=== PATIENT | male | born 1950 | race Caucasian/White ===

== ENCOUNTER 2018-04-05 12:10 | Emergency (ER) | payer OTHER, MEDICAID ==
--- NOTE | 2018-04-05 13:00 | EDPHY ---
H & P Stated Complaint: believes he could have pneumonia Time Seen by Provider: 04/05/18 12:58 HPI/ROS: CHIEF COMPLAINT: Fever, productive cough HISTORY OF PRESENT ILLNESS: The patient presents to the ED with a 10 day history of a worsening productive cough and associated fever. The patient has a history of hypertension, diabetes and COPD. The patient is not currently on oxygen. He had been on oxygen in the past. The patient denies any complaints of acute pain. He denies abdominal pain, vomiting or diarrhea. The patient feels as if he may have pneumonia. The patient feels globally weak as a result of this condition. REVIEW OF SYSTEMS: A comprehensive 10 point review of systems is otherwise negative aside from elements mentioned in the history of present illness. Source: Patient Exam Limitations: No limitations - Personal History Current Tetanus Diphtheria and Acellular Pertussis (TDAP): Unsure Tetanus Vaccine Date: unable to assess d/t intoxication - Medical/Surgical History Hx Asthma: Yes Hx Chronic Respiratory Disease: Yes Hx Diabetes: Yes Hx Cardiac Disease: No Hx Renal Disease: No Hx Cirrhosis: No Hx Alcoholism: Yes Hx HIV/AIDS: No Hx Splenectomy or Spleen Trauma: No Other PMH: IDDM, COPD, hypertension, hypothyroidism, CVA, PNA, Chronic [place] R[place]. home o2 prn - Social History Smoking Status: Former smoker - Physical Exam Exam: General Appearance: Alert, no distress Eyes: Pupils equal and round no pallor or injection ENT, Mouth: Mucous membranes moist Respiratory: There are no retractions, lungs are clear to auscultation Cardiovascular: Tachycardic Gastrointestinal: Abdomen is soft and nontender, no masses, bowel sounds normal Neurological: A&O, normal motor function, normal sensory exam, normal cranial nerves Skin: Warm and dry, no rashes Musculoskeletal: Neck is supple nontender Extremities: symmetrical, full range of motion Constitutional: Initial Vital Signs Temperature (C) 37.2 C 04/05/18 12:10 Heart Rate 107 H 04/05/18 12:10 Respiratory Rate 16 04/05/18 12:10 Blood Pressure 145/79 H 04/05/18 12:10 O2 Sat (%) 88 L 04/05/18 12:10 O2 Delivery Mode Room Air O2 (L/minute) 2 Allergies/Adverse Reactions: azithromycin Allergy (Intermediate, Verified 04/05/18 12:16) HALLUCINATIONS prednisone Allergy (Intermediate, Verified 04/05/18 12:16) HALLUCINATIONS memantine HCl [From Namenda] Allergy (Verified 04/05/18 12:16) naproxen [From Naprosyn] Allergy (Verified 04/05/18 12:16) Home Medications: Medication Instructions Recorded Carvedilol [Coreg (*)] 3.125 mg PO BIDMEAL 06/17/13 [place]-3 Fatty Acids [Fish Oil 1000 1,000 mg PO TID 06/17/13 mg (*)] Rosuvastatin Calcium [Crestor 40mg 40 mg PO DAILY 06/17/13 (*)] Tamsulosin HCl [Flomax 0.4 MG (*)] 0.4 mg PO HS 06/17/13 Tiotropium Inhaler [Spiriva 1 inh IH DAILY 06/17/13 Inhaler (RX)] Oxycodone HCl [Dazidox] 10 mg PO Q6 08/09/14 Insulin Glargine [Lantus 100 50 units SC HS 02/03/16 UNITS/ML (*)] Insulin Lispro [humALOG LISPRO 100 40 unit SC TID 02/03/16 units/ml (*)] Levothyroxine [Synthroid 125 mcg 112 mcg PO DAILY 02/03/16 (*)] Metformin HCl [Metformin 1000 mg] 1,000 mg PO BIDMEAL 02/03/16 Pantoprazole Sodium [Protonix 40mg 40 mg PO DAILY 02/03/16 (*)] traZODone [traZODone 150MG (*)] 150 mg PO HS 02/03/16 Aspirin [Aspirin 81mg (*)] 81 mg PO DAILY 03/25/16 Gabapentin [Neurontin] 800 mg PO TID 03/25/16 Niacin [Niacin 500 mg (*)] 500 mg PO TID 03/25/16 Promethazine HCl [Phenergan 25mg 25 mg PO Q6 PRN 03/25/16 (*)] Advair 250/50 (*) 09/24/16 B-12 09/24/16 Colon Herb Cleanser 09/24/16 Ginseng 09/24/16 Insulin Glargine 10 units SQ DAILY AT 6AM 09/24/16 Magnesium 09/24/16 Proventil 09/24/16 VITAMIN E 09/24/16 Vitamin C 09/24/16 Fluticasone/Salmeter 250/50Mcg 2 puffs IH DAILY #1 disk 04/05/18 [Advair 250/50 (*)] Medical Decision Making - Diagnostics Imaging Results: Imaging Impressions Chest X-Ray 04/05/18 12:17 Impression: Perihilar bronchitis/COPD, with no new focal infiltrate identified. If there is further clinical concern regarding the patient's symptoms, short- term repeat chest radiography or chest CT imaging is suggested. Note: On a previous CT scan of the chest dated 06/28/2016, a posterior segment subpleural right lower lobe nodular infiltrate was identified, and follow-up was suggested. This is not appreciated on the conventional radiograph. ED Course/Re-evaluation: Additional history is obtained from the patient. He is currently homeless and living his car. He has not seen his primary care provider in [place] in 2 years. He had previously been receiving care in [place]. The patient reports he has medications to manage his diabetes but is out of his inhalers. The patient's chest x-ray demonstrates no evidence of an obvious pneumonia. He has a room air oxygen saturation of 90%. Patient's laboratory studies are unremarkable for acute findings. Case management was able to arrange for the patient to be seen by his primary care provider on Tuesday to review his medications. The patient was also given the outpatient resources for the homeless correction. The patient is discharged home with a albuterol inhaler from the emergency department. He is given a prescription for his Advair. The patient will be given customary aftercare instructions and return precautions. Differential Diagnosis: Differential diagnosis considered includes asthma, bronchitis, pneumonia, diabetic ketoacidosis, dehydration, metabolic abnormality - Data Points Laboratory Results: Laboratory Results 04/05/18 13:06 04/05/18 13:06 04/05/18 04/05/18 13:06 13:06 WBC 12.64 10^3/uL H 10^3/uL (3.80-9.50) RBC 5.17 10^6/uL 10^6/uL (4.40-6.38) Hgb 14.0 g/dL g/dL (13.7-17.5) Hct 42.4 % % (40.0-51.0) MCV 82.0 fL fL (81.5-99.8) MCH 27.1 pg L pg (27.9-34.1) MCHC 33.0 g/dL g/dL (32.4-36.7) RDW 14.6 % % (11.5-15.2) Plt Count 212 10^3/uL 10^3/uL (150-400) MPV 9.4 fL fL (8.7-11.7) Neut % (Auto) 73.3 % % (39.3-74.2) Lymph % (Auto) 16.4 % % (15.0-45.0) [place] % (Auto) 7.5 % % (4.5-13.0) Eos % (Auto) 1.8 % % (0.6-7.6) Baso % (Auto) 0.4 % % (0.3-1.7) Nucleat RBC Rel Count 0.0 % % (0.0-0.2) Absolute Neuts (auto) 9.26 10^3/uL H 10^3/uL (1.70-6.50) Absolute Lymphs (auto) 2.07 10^3/uL 10^3/uL (1.00-3.00) Absolute Monos (auto) 0.95 10^3/uL H 10^3/uL (0.30-0.80) Absolute Eos (auto) 0.23 10^3/uL 10^3/uL (0.03-0.40) Absolute Basos (auto) 0.05 10^3/uL 10^3/uL (0.02-0.10) Absolute Nucleated RBC 0.00 10^3/uL 10^3/uL (0-0.01) Immature Gran % 0.6 % % (0.0-1.1) Immature Gran # 0.08 10^3/uL 10^3/uL (0.00-0.10) Sodium 135 mEq/L mEq/L (135-145) Potassium 3.8 mEq/L mEq/L (3.5-5.2) Chloride 96 mEq/L L mEq/L (97-110) Carbon Dioxide 26 mEq/l mEq/l (22-31) Anion Gap 13 mEq/L mEq/L (8-16) BUN 11 mg/dL mg/dL (7-23) Creatinine 1.1 mg/dL mg/dL (0.7-1.3) Estimated GFR > 60 Glucose 191 mg/dL H mg/dL (70-100) Calcium 8.9 mg/dL mg/dL (8.5-10.4) Departure - Departure Disposition: Home, Routine, Self-Care Clinical Impression: Bronchitis Condition: Good Instructions: Acute Bronchitis (ED) Additional Instructions: 1. You have an appointment with Dr. Bryant Tena on Tuesday04/07/18 at 2: 30pm. Please arrive by 2:15pm 2. Albuterol inhaler up to every 2 hr as needed for cough and shortness of breath. 3. Please return to the ED for markedly worsening symptoms or other concerns. Referrals: Bryant Tena MD [Medical Doctor] - As per Instructions Prescriptions: Fluticasone/Salmeter 250/50Mcg [Advair 250/50 (*)] 2 puffs IH DAILY #1 disk
[2018-04-05 13:22] LABS: PLATELET COUNT 212 10^3/uL (150-400)
[2018-04-05] MEDS ORDERED: ALBUTEROL INH PREPACK MDI TAKEHOME ONE (16:21)
[2018-04-05 16:40] VITALS: BP 132/80
--- NOTE | 2018-04-05 18:06 | ASMTCMCOM ---
CM Note CM Note Notes: Requested to assist pt w/getting a follow-up appt w/his PCP, Dr Tena ([phone]). Pt's last visit w/Dr Tena was in October 2016. Pt has been living in [place] but has moved back to [place] and would like to see Dr Tena again. This CM scheduled an appt for pt on 04/07/18 at 2:30pm. Pt knows to arrive by 2:15pm and was provided contact info, address, and map. This CM also spoke with Dr Tena's Restorative Coordinator, Yvonne Melvin ([phone]); she is aware pt is back in [place] and has upcoming appt. Pt has been sleeping in his car but states he has already gone to the [employer] "and filled out paperwork to get housing." This CM also provided pt info on [facility]'s Coordinate Entry and encouraged him to go there tomorrow. Pt also provided various other homeless resources information such as community table meals, etc. Pt states he has a couple of friends he can call and see if they can help him out in the meantime. Pt's cell # [phone]. This CM also e-mailed Kyra Lambert with [facility] requesting her to reach out patient and see if he can further benefit from their services/resources. CM available for further assistance if needed. Date Signed: 04/05/2018 06:06 PM Electronically Signed By:Sera Candelaria RN
--- NOTE | 2018-04-05 18:07 | ASDISCHSUM ---
Discharge Information Plan Status:Homeless/Usp Medically Cleared to Leave: Discharge Date:04/05/2018 04:40 PM CM D/C Disposition:Streets (Homeless) ADT D/C Disposition:Home, Routine, Self-Care Projected Discharge Date:04/05/2018 04:40 PM Transportation at D/C:Self Discharge Delay Reason: Follow-Up Date:04/05/2018 04:40 PM Discharge Slot: Final Diagnosis: Placement Information Patient Contact Information Contact Name:ANUJ Relationship:Daughter Address: City:[facility] Phone: State/Zip Code:[place] Email: Financial Information Financial Class:Medicare Primary Plan Desc:MEDICARE OUTPATIENT Primary Plan Number:[id number] Secondary Plan Desc:MEDICAID HEALTH FIRST CO OP Secondary Plan Number:[id number] Assessment Information [facility] Progress Note CM Note CM Note Notes: Requested to assist pt w/getting a follow-up appt w/his PCP, Dr Tena ([phone]). Pt's last visit w/Dr Tena was in October 2016. Pt has been living in [place] but has moved back to [place] and would like to see Dr Tena again. This CM scheduled an appt for pt on 04/07/18 at 2:30pm. Pt knows to arrive by 2:15pm and was provided contact info, address, and map. This CM also spoke with Dr Tena's Java Jsf Developer, Yvonne Melvin ([phone]); she is aware pt is back in [place] and has upcoming appt. Pt has been sleeping in his car but states he has already gone to the [employer] "and filled out paperwork to get housing." This CM also provided pt info on [facility]'s Coordinate Entry and encouraged him to go there tomorrow. Pt also provided various other homeless resources information such as community table meals, etc. Pt states he has a couple of friends he can call and see if they can help him out in the meantime. Pt's cell # [phone]. This CM also e-mailed Kyra Petra with [facility] requesting her to reach out patient and see if he can further benefit from their services/resources. CM available for further assistance if needed. Date Signed: 04/05/2018 06:06 PM Electronically Signed By:Sera Candelaria RN Intervention Information
== END 2018-04-05 16:40 | disposition home or self-care (01) ==
DX: J40 Bronchitis, not specified as acute or chronic (principal); J44.9 Chronic obstructive pulmonary disease, unspecified; E11.9 Type 2 diabetes mellitus without complications; I10 Essential (primary) hypertension; Z79.4 Long term (current) use of insulin; Z79.82 Long term (current) use of aspirin; Z86.73 Personal history of transient ischemic attack (TIA), and cerebral infarction without residual deficits; Z87.891 Personal history of nicotine dependence

== ENCOUNTER 2018-08-06 08:57 | Emergency (ER) | payer MEDICAID, OTHER ==
[2018-08-06] MEDS ORDERED: ONDANSETRON 4 MG/2 ML VIAL IVP ONE (09:47)
[2018-08-06 09:56] LABS: PLATELET COUNT 244 10^3/uL (150-400)
--- NOTE | 2018-08-06 10:19 | EDPHY ---
H & P Time Seen by Provider: 08/06/18 10:16 HPI/ROS: Chief complaint. Nausea, headache, weakness HPI. 67-year-old female with history of COPD, hypertension, diabetes presents with 3 day history of nausea. He also has a headache but tells me he has chronic headaches for many years and this is the same. No vomiting or diarrhea. Some upper abdominal discomfort. No chest discomfort. Chronic shortness of breath secondary to COPD. No fever or cough. And patient tells me maybe some left-sided chest tightness ROS Constitutional. no fever/chills, no weakness Eyes. no problems with vision ENT. no sore throat, no nasal drainage Cardiovascular. Chest tightness Respiratory. Chronic shortness of breath Abdominal. Upper abdominal pain with nausea . no problems urinating [place]. no calf pain/swelling, no neck/back pain, no joint pain Skin. no rash Lymph. no swollen glands Neuro. Chronic headache Past Medical/Surgical History: Hypertension, diabetes, COPD, hypothyroid, CVA Social History: Single, nonsmoker, no alcohol Smoking Status: Former smoker Physical Exam: General Appearance: Alert pleasant well-developed male mild distress vital signs are stable Eyes: Pupils equal and round no pallor or injection. ENT, Mouth: Mucous membranes are moist. Respiratory: There are no retractions, lungs are clear to auscultation. Cardiovascular: Regular rate and rhythm. Gastrointestinal: Abdomen is soft and nontender, no masses, bowel sounds normal. Neurological: Awake and alert, sensory and motor exams grossly normal. Skin: Warm and dry, no rashes. Musculoskeletal: Neck is supple nontender. Extremities symmetrical, full range of motion. Psychiatric: Patient is oriented X 3, there is no agitation. Constitutional: Initial Vital Signs Temperature (C) 36.7 C 08/06/18 08:59 Heart Rate 96 08/06/18 08:59 Respiratory Rate 18 08/06/18 08:59 Blood Pressure 165/97 H 08/06/18 08:59 O2 Sat (%) 96 08/06/18 08:59 O2 Delivery Mode Room Air Allergies/Adverse Reactions: azithromycin Allergy (Unknown, Verified 08/06/18 09:05) memantine HCl [From Namenda] Allergy (Unknown, Verified 08/06/18 09:05) prednisone Allergy (Unknown, Verified 08/06/18 09:05) Home Medications: Medication Instructions Recorded Carvedilol [Coreg (*)] 3.125 mg PO BIDMEAL 06/17/13 Rosuvastatin Calcium [Crestor 40mg 40 mg PO DAILY 06/17/13 (*)] Tamsulosin HCl [Flomax 0.4 MG (*)] 0.4 mg PO HS 06/17/13 Tiotropium Inhaler [Spiriva 1 inh IH DAILY 06/17/13 Inhaler (RX)] Insulin Glargine [Lantus 100 50 units SC HS 02/03/16 UNITS/ML (*)] Insulin Lispro [humALOG LISPRO 100 40 unit SC TID 02/03/16 units/ml (*)] Levothyroxine [Synthroid 125 mcg 112 mcg PO DAILY 02/03/16 (*)] Metformin HCl [Metformin 1000 mg] 1,000 mg PO BIDMEAL 02/03/16 Pantoprazole Sodium [Protonix 40mg 40 mg PO DAILY 02/03/16 (*)] traZODone [traZODone 150MG (*)] 150 mg PO HS 02/03/16 Aspirin [Aspirin 81mg (*)] 81 mg PO DAILY 03/25/16 Gabapentin [Neurontin] 800 mg PO TID 03/25/16 Proventil 09/24/16 Ondansetron Odt [Zofran Odt] 4 mg PO Q4PRN PRN #4 tab 08/06/18 Medical Decision Making Procedures: IV normal saline. Zofran for nausea ED Course/Re-evaluation: Re-evaluation 12:30 p.m.. Patient is without symptoms. He has been ambulatory. Drinking fluids without nausea vomiting. Patient and I discussed laboratory evaluation. We discussed treatment plan including criteria for return importance of follow-up and further evaluation. He expresses understanding and agreement Differential Diagnosis: I considered pancreatitis, acute coronary syndrome, electrolyte abnormalities - Data Points Laboratory Results: Laboratory Results 08/06/18 09:40 08/06/18 09:40 08/06/18 08/06/18 08/06/18 10:53 09:40 09:40 WBC RBC Hgb Hct MCV MCH MCHC RDW Plt Count MPV Neut % (Auto) Lymph % (Auto) [place] % (Auto) Eos % (Auto) Baso % (Auto) Nucleat RBC Rel Count Absolute Neuts (auto) Absolute Lymphs (auto) Absolute Monos (auto) Absolute Eos (auto) Absolute Basos (auto) Absolute Nucleated RBC Immature Gran % Immature Gran # Sodium 140 mEq/L mEq/L (135-145) Potassium 4.5 mEq/L mEq/L (3.3-5.0) Chloride 101 mEq/L mEq/L (97-110) Carbon Dioxide 28 mEq/l mEq/l (22-31) Anion Gap 11 mEq/L mEq/L (8-16) BUN 15 mg/dL mg/dL (7-23) Creatinine 0.9 mg/dL mg/dL (0.7-1.3) Estimated GFR > 60 Glucose 175 mg/dL H mg/dL (70-100) Calcium 9.6 mg/dL mg/dL (8.5-10.4) Total Bilirubin 0.5 mg/dL mg/dL (0.1-1.4) AST 26 IU/L IU/L (17-59) ALT 29 IU/L IU/L (21-72) Alkaline Phosphatase 63 IU/L IU/L (38-126) POC Troponin I 0.00 ng/mL ng/mL (0.00-0.08) Total Protein 7.8 g/dL g/dL (6.3-8.2) Albumin 4.5 g/dL g/dL (3.5-5.0) Lipase 137 IU/L IU/L (23-300) 08/06/18 09:40 WBC 7.90 10^3/uL 10^3/uL (3.80-9.50) RBC 6.14 10^6/uL 10^6/uL (4.40-6.38) Hgb 14.4 g/dL g/dL (13.7-17.5) Hct 46.9 % % (40.0-51.0) MCV 76.4 fL L fL (81.5-99.8) MCH 23.5 pg L pg (27.9-34.1) MCHC 30.7 g/dL L g/dL (32.4-36.7) RDW 15.2 % % (11.5-15.2) Plt Count 244 10^3/uL 10^3/uL (150-400) MPV 9.5 fL fL (8.7-11.7) Neut % (Auto) 67.8 % % (39.3-74.2) Lymph % (Auto) 20.0 % % (15.0-45.0) [place] % (Auto) 7.7 % % (4.5-13.0) Eos % (Auto) 3.3 % % (0.6-7.6) Baso % (Auto) 0.8 % % (0.3-1.7) Nucleat RBC Rel Count 0.0 % % (0.0-0.2) Absolute Neuts (auto) 5.36 10^3/uL 10^3/uL (1.70-6.50) Absolute Lymphs (auto) 1.58 10^3/uL 10^3/uL (1.00-3.00) Absolute Monos (auto) 0.61 10^3/uL 10^3/uL (0.30-0.80) Absolute Eos (auto) 0.26 10^3/uL 10^3/uL (0.03-0.40) Absolute Basos (auto) 0.06 10^3/uL 10^3/uL (0.02-0.10) Absolute Nucleated RBC 0.00 10^3/uL 10^3/uL (0-0.01) Immature Gran % 0.4 % % (0.0-1.1) Immature Gran # 0.03 10^3/uL 10^3/uL (0.00-0.10) Sodium Potassium Chloride Carbon Dioxide Anion Gap BUN Creatinine Estimated GFR Glucose Calcium Total Bilirubin AST ALT Alkaline Phosphatase POC Troponin I Total Protein Albumin Lipase Medications Given: Discontinued Medications Sodium Chloride (Ns) 1,000 mls @ 0 mls/hr IV EDNOW ONE; Wide Open PRN Reason: Protocol Stop: 08/06/18 10:31 Last Admin: 08/06/18 10:46 Dose: 1,000 mls Ondansetron HCl (Zofran) 4 mg IVP EDNOW ONE Stop: 08/06/18 09:48 Last Admin: 08/06/18 09:50 Dose: 4 mg Point of Care Test Results: Chemistry 08/06/18 10:53 POC Troponin I 0.00 ng/mL ng/mL (0.00-0.08) Departure - Departure Disposition: Home, Routine, Self-Care Clinical Impression: Abdominal pain Qualifiers: Abdominal location: epigastric Qualified Code(s): R10.13 - Epigastric pain Condition: Good Instructions: Abdominal Pain (ED) Additional Instructions: Easy, bland diet today. Frequent, small sips fluids. Zofran as needed for nausea Return for worsening symptoms. Recheck in 2 days for continuing symptoms Referrals: Bryant Tena MD [Primary Care Provider] - 2-3 days, if not improved Prescriptions: Ondansetron Odt [Zofran Odt] 4 mg PO Q4PRN PRN #4 tab PRN Reason: Nausea/Vomiting, Use 1st
[2018-08-06] MEDS ORDERED: NS 1,000 ML IV ONE (10:30)
[2018-08-06 12:58] VITALS: BP 135/80
--- NOTE | 2018-08-06 15:14 | CPEKG ---
Test Reason : OPEN Blood Pressure : / mmHG Vent. Rate : 092 BPM Atrial Rate : 092 BPM P-R Int : 133 ms QRS Dur : 073 ms QT Int : 412 ms P-R-T Axes : 075 031 070 degrees QTc Int : 510 ms Sinus rhythm Prolonged QT interval Confirmed by Tommy Ordoñez ([id number]) on 08/06/2018 3:13:59 PM Referred By: Confirmed By:Tommy Ordoñez
== END 2018-08-06 12:58 | disposition home or self-care (01) ==
DX: R11.0 Nausea (principal); R10.13 Epigastric pain; J44.9 Chronic obstructive pulmonary disease, unspecified; I10 Essential (primary) hypertension; E11.9 Type 2 diabetes mellitus without complications; E86.9 Volume depletion, unspecified; Z87.891 Personal history of nicotine dependence
CPT/HCPCS: 93005; 96361; 96374; 99284; J2405; 84484-PO

== ENCOUNTER 2018-08-30 17:44 | Inpatient (IN) | payer OTHER, MEDICAID ==
--- NOTE | 2018-08-30 17:52 | EDPHY ---
H & P Time Seen by Provider: 08/30/18 17:51 HPI/ROS: CHIEF COMPLAINT: Fever, cough, weakness HISTORY OF PRESENT ILLNESS: Patient is a homeless male who is brought into the emergency department by paramedics with fever, cough and weakness. The patient reportedly was lying on a sidewalk and unable to get up. He reports he was fatigue from working in the sun all day. The patient denies any vomiting or diarrhea. He does have a history of diabetes and takes oral medications for this condition. The patient has had a cough for the past several days. He denies any abdominal pain, vomiting or diarrhea. The patient denies any history of coronary artery disease. He does have a history of COPD. REVIEW OF SYSTEMS: A comprehensive 10 point review of systems is otherwise negative aside from elements mentioned in the history of present illness. Source: Patient - Personal History Tetanus Vaccine Date: unable to assess d/t intoxication - Medical/Surgical History Hx Asthma: Yes Hx Chronic Respiratory Disease: Yes Hx Diabetes: Yes Hx Cardiac Disease: No Hx Renal Disease: No Hx Cirrhosis: No Hx Alcoholism: Yes Hx HIV/AIDS: No Hx Splenectomy or Spleen Trauma: No Other PMH: IDDM, COPD, hypertension, hypothyroidism, CVA, PNA, Chronic DEL RIO. home o2 prn - Social History Smoking Status: Former smoker - Physical Exam Exam: General Appearance: Disheveled male, no acute distress Eyes: Pupils equal and round no pallor or injection ENT, Mouth: Dry mouth, poor dentition Respiratory: Rales noted at the right lung base Cardiovascular: Regular rate and rhythm Gastrointestinal: Abdomen is soft and nontender, no masses, bowel sounds normal Neurological: A&O, normal motor function, normal sensory exam, normal cranial nerves Skin: Warm and dry, no rashes Musculoskeletal: Neck is supple nontender Extremities: symmetrical, full range of motion Constitutional: Initial Vital Signs Temperature (C) 37.1 C 08/30/18 17:56 Heart Rate 103 H 08/30/18 17:56 Respiratory Rate 22 H 08/30/18 17:56 Blood Pressure 141/86 H 08/30/18 17:56 O2 Sat (%) 96 08/30/18 17:56 O2 Delivery Mode Room Air Allergies/Adverse Reactions: azithromycin Allergy (Unknown, Verified 08/30/18 18:00) memantine HCl [From Namenda] Allergy (Unknown, Verified 08/30/18 18:00) prednisone Allergy (Unknown, Verified 08/30/18 18:00) Home Medications: Medication Instructions Recorded Carvedilol [Coreg (*)] 3.125 mg PO BIDMEAL 06/17/13 Rosuvastatin Calcium [Crestor 40mg 40 mg PO DAILY 06/17/13 (*)] Tamsulosin HCl [Flomax 0.4 MG (*)] 0.4 mg PO HS 06/17/13 Tiotropium Inhaler [Spiriva 1 inh IH DAILY 06/17/13 Inhaler (RX)] Insulin Glargine [Lantus 100 50 units SC HS 02/03/16 UNITS/ML (*)] Insulin Lispro [humALOG LISPRO 100 40 unit SC TID 02/03/16 units/ml (*)] Levothyroxine [Synthroid 125 mcg 112 mcg PO DAILY 02/03/16 (*)] Metformin HCl [Metformin 1000 mg] 1,000 mg PO BIDMEAL 02/03/16 Pantoprazole Sodium [Protonix 40mg 40 mg PO DAILY 02/03/16 (*)] traZODone [traZODone 150MG (*)] 150 mg PO HS 02/03/16 Aspirin [Aspirin 81mg (*)] 81 mg PO DAILY 03/25/16 Gabapentin [Neurontin] 800 mg PO TID 03/25/16 Proventil 09/24/16 Ondansetron Odt [Zofran Odt] 4 mg PO Q4PRN PRN #4 tab 08/06/18 Medical Decision Making - Diagnostics Imaging Results: Imaging Impressions Chest X-Ray 08/30/18 17:50 Impression: Moderate underlying bronchitis, similar in appearance. No definite new acute cardiopulmonary abnormality. ED Course/Re-evaluation: The patient presents to the ED with weakness from sun exposure today and likely dehydration. The patient does have a history of COPD. He has had a several day history of a mild cough. The patient's chest x-ray demonstrates no evidence of an obvious pneumonia. Patient had an IV established. He received 2 L of normal saline. The patient CPKs within normal limits. He has no evidence of renal failure or a significant metabolic derangement. The patient underwent serial examinations in the ED. I re-evaluated the patient at 815pm.. He is feeling much better. He is eating and drinking. The patient is ambulatory. He has a nonfocal neurologic examination. The patient would like to be discharged home. The patient does have a history of chronic hypoxemia from his COPD and uses oxygen as needed at night. Differential Diagnosis: Differential diagnosis considered includes asthma, bronchitis, pneumonia, bacteremia, sepsis - Data Points Laboratory Results: Laboratory Results 08/30/18 18:20 08/30/18 18:20 08/30/18 08/30/18 08/30/18 18:20 18:20 18:20 WBC 13.75 10^3/uL H 10^3/uL (3.80-9.50) RBC 5.08 10^6/uL 10^6/uL (4.40-6.38) Hgb 11.8 g/dL L g/dL (13.7-17.5) Hct 39.5 % L % (40.0-51.0) MCV 77.8 fL L fL (81.5-99.8) MCH 23.2 pg L pg (27.9-34.1) MCHC 29.9 g/dL L g/dL (32.4-36.7) RDW 16.3 % H % (11.5-15.2) Plt Count 264 10^3/uL 10^3/uL (150-400) MPV 9.8 fL fL (8.7-11.7) Neut % (Auto) Not Reported Lymph % (Auto) Not Reported [place] % (Auto) Not Reported Eos % (Auto) Not Reported Baso % (Auto) Not Reported Nucleat RBC Rel Count Not Reported Absolute Neuts (auto) Not Reported Absolute Lymphs (auto) Not Reported Absolute Monos (auto) Not Reported Absolute Eos (auto) Not Reported Absolute Basos (auto) Not Reported Absolute Nucleated RBC Not Reported Immature Gran % Not Reported Seg Neutrophils % 79.0 % % Band Neutrophils % 0.0 % % Lymphocytes % 13.0 % % Monocytes % 4.0 % % Eosinophils % 2.0 % % Basophils % 0.0 % % Metamyelocytes % 2.0 % % Myelocytes % 0.0 % % Promyelocytes % 0.0 % % Blast Cells % 0.0 % % Immature Gran # Not Reported Absolute Seg Neuts 10.86 10^/uL H 10^/uL (1.70-6.50) Absolute Band Neuts 0.00 10^3/uL 10^3/uL (0.00-0.70) Absolute Lymphocytes 1.79 10^3/uL 10^3/uL (1.00-3.00) Absolute Monocytes 0.55 10^3/uL 10^3/uL (0.30-0.80) Absolute Eosinophils 0.28 10^3/uL 10^3/uL (0.03-0.40) Absolute Basophils 0.00 10^3/uL L 10^3/uL (0.02-0.10) Absolute Metamyelocyte 0.28 10^3/mL H 10^3/mL (0.00-0.00) Absolute Myelocytes 0.00 10^3/mL 10^3/mL (0.00-0.00) Absolute Promyelocytes 0.00 10^3/uL 10^3/uL (0.00-0.00) Absolute Plasma Cells 0.00 10^3/uL 10^3/uL (0.00-0.00) Nucleated RBCs 1.0 /100 WBC H /100 WBC (0-0) Absolute Blast Cells 0.00 10^3/uL 10^3/uL (0.00-0.00) Plasma Cells % 0.0 % % Platelet Estimate ADEQUATE (ADEQ) VBG Lactic Acid 1.1 mmol/L mmol/L (0.7-2.1) Sodium 136 mEq/L mEq/L (135-145) Potassium 5.2 mEq/L H mEq/L (3.3-5.0) Chloride 97 mEq/L mEq/L (97-110) Carbon Dioxide 30 mEq/l mEq/l (22-31) Anion Gap 9 mEq/L mEq/L (8-16) BUN 18 mg/dL mg/dL (7-23) Creatinine 1.1 mg/dL mg/dL (0.7-1.3) Estimated GFR > 60 Glucose 155 mg/dL H mg/dL (70-100) Calcium 9.5 mg/dL mg/dL (8.5-10.4) Creatine Kinase 198 IU/L IU/L (0-224) Medications Given: Discontinued Medications Sodium Chloride (Ns) 1,000 mls @ 0 mls/hr IV EDNOW ONE; Wide Open PRN Reason: Protocol Stop: 08/30/18 19:39 Last Admin: 08/30/18 19:41 Dose: 1,000 mls Departure - Departure Disposition: Home, Routine, Self-Care Clinical Impression: Dehydration, COPD (chronic obstructive pulmonary disease) Condition: Good Instructions: Dehydration (ED) Additional Instructions: 1. Please try and increase your fluid intake as mild dehydration likely contributed to your symptoms today. 2. Please return to the ED for any markedly worsening symptoms, difficulty breathing, cough, fever or vomiting 3. Please schedule a follow-up appointment with [facility] for a recheck. Referrals: [facility],. [Clinic] - As per Instructions
[2018-08-30 18:40] LABS: PLATELET COUNT 264 10^3/uL (150-400)
[2018-08-30 18:57] LABS: CREATINE KINASE 198 IU/L (0-224)
[2018-08-30] MEDS ORDERED: NS 1,000 ML IV ONE (19:38)
[2018-08-30] MEDS ORDERED: IPRATROPIUM/ALBUTEROL 3 ML DEYVIAL IH ONE (20:37)
[2018-08-30] MEDS ORDERED: ALBUTEROL 3 ML DEYVIAL IH ONE (20:38)
[2018-08-30] MEDS ORDERED: methylPREDNISolone SOD SUCC 125 MG/2 ML VIAL IVP ONE (20:38)
[2018-08-30] MEDS ORDERED: TEMAZEPAM 15 MG CAP PO PRN (21:38)
[2018-08-30] MEDS ORDERED: ACETAMINOPHEN 325 MG TAB PO PRN (21:38)
[2018-08-30] MEDS ORDERED: ALBUTEROL 3 ML DEYVIAL IH PRN (21:38)
[2018-08-30] MEDS ORDERED: ONDANSETRON DISINTEGRATING 4 MG TAB PO PRN (21:38)
[2018-08-30] MEDS ORDERED: HYDROCODONE/APAP 5/325 TAB PO PRN (21:38)
[2018-08-30] MEDS ORDERED: ONDANSETRON 4 MG/2 ML VIAL IVP PRN (21:38)
[2018-08-30] MEDS ORDERED: hydrALAZINE 20 MG/ML VIAL IVP PRN (21:39)
[2018-08-31] MEDS ORDERED: D50W 25 GM/50 ML SYR IVP PRN (00:55)
[2018-08-31] MEDS ORDERED: NS 1,000 ML IV SCH (01:00)
--- NOTE | 2018-08-31 03:39 | GHP ---
DATE OF ADMISSION: 08/30/2018 CHIEF COMPLAINT: Shortness of breath. HISTORY: This is a 67-year-old homeless man, with a past medical history of chronic obstructive pulm onary disease and chronic hypoxic respiratory failure, who presents with worsening shortness of breat h. The patient notes that he was seen recently at another hospital, at which time he was told he nee ds home oxygen. He has attempted to get this set up over the last couple of months, and has been unique ble to due to his homelessness. He was noted to be 82% on room air in the hospital today. He notes he has a chronic cough that is unchanged. He otherwise denies fevers or chills. He has had no tovar e in his chronic sputum production. PAST MEDICAL HISTORY: Includes: 1. COPD. 2. Diabetes. 3. Chronic hypoxia without access to home oxygen. 4. Hypothyroidism. 5. CVA in 2008. 6. Peripheral neuropathy. FAMILY HISTORY: This was reviewed and unremarkable. SOCIAL HISTORY: The patient has a 30+ pack-year smoking history, but states he quit about 10 years a go. He denies alcohol use. He is homeless. REVIEW OF SYSTEMS: A 10-point review of systems obtained, negative except as per HPI. HOME MEDICATIONS: 1. Trazodone. 2. Tiotropium. 3. Tamsulosin. 4. Rosuvastatin. 5. Proventil. 6. Pantoprazole. 7. Zofran. 8. Metformin. 9. Levothyroxine. 10. Insulin lispro. 11. Insulin glargine. 12. Gabapentin. 13. Carvedilol. 14. Aspirin. ALLERGIES: Include azithromycin, memantine, and prednisone. PHYSICAL EXAMINATION: VITAL SIGNS: BP 164/84, heart rate 108, respiratory rate 24, O2 sats 91% on 4 L; he was as low as 82% on room air. Temperature is 36.6. GENERAL APPEARANCE: This is a chronical ly ill-appearing male. He is awake and alert. He is in no acute distress. EYES: Anicteric. HENT: Oropharynx clear. CARDIOVASCULAR: Regular rate and rhythm, no MRG. PULMONARY: Decreased breath sounds throughout. Occasional wheeze. ABDOMEN: Soft, nontender, nondistended. EXTREMITIES: No cl ubbing, cyanosis, or edema. SKIN: Warm, dry, well perfused. NEURO/PSYCH: Oriented, appropriate, p leasant. CLINICAL DATA: Labs reviewed, notable for white blood cell count of 13.75, hematocrit of 11.8 and la ctic acid 1.1. Chemistry is notable for a potassium of 5.2, glucose of 155. Chest x-ray, personally reviewed and interpreted, shows underlying bronchitis without any acute abnor mality. ASSESSMENT AND PLAN: This is a 67-year-old man with past medical history of chronic obstructive pulm onary disease and chronic hypoxic respiratory failure, unable to obtain home oxygen due to homelessne ss, presenting with shortness of breath and acute hypoxic respiratory failure. 1. Acute on chronic hypoxic respiratory failure. Patient with O2 sats of 82% on room air, this in t he setting of being unable to obtain his home oxygen that he was previously recommended. He is sympt omatic. X-ray is not concerning for acute abnormality, and suspect this is just due to noncompliance with oxygen, rather than something like pneumonia or pulmonary embolism. Will attempt to have case management help to see if home oxygen can be arranged in the morning. 2. Chronic obstructive pulmonary disease, without evidence of acute exacerbation. Will start albute rol and DuoNeb overnight, and resume his home medications once those have been confirmed in the [facility] ng. He was given a dose of methylprednisone, but do not suspect he requires that ongoing at this poi nt. 3. Insulin-dependent diabetes. His home regimen needs to be confirmed, but for now will start on sl iding scale. His most recent glucose was within normal range. 4. Leukocytosis without clear evidence of acute infectious process at this point. We will repeat in the morning. 5. Hyperkalemia. Mildly elevated potassium, will recheck in the morning. Patient may be slightly d ry, with a creatinine of 1.1 and usual baseline of closer to 0.9. We will provide gentle fluids over night. 6. Observation status. Suspect the patient will require less than 48-hour stay for evaluation and m anagement of above. 7. Patient is new to my care. Old records reviewed, summarized as per HPI and past medical history. Care plan reviewed with ER physician, including plans to attempt to obtain oxygen for the patient. /[id number]/MODL
[2018-08-31 05:00] LABS: PLATELET COUNT 222 10^3/uL (150-400)
[2018-08-31] MEDS: IPRATROPIUM/ALBUTEROL 3 ML DEYVIAL IH SCH ×4 (05:45→21:05)
--- NOTE | 2018-08-31 08:14 | HOSPPROG ---
Hospitalist Progress Note Assessment/Plan: Patient is a 67 y/o man w hx of COPD and chronic hypoxic respiratory failure. Unable to obtain O2 due to being homeless. He presented to the ER with SOB and acute hypoxemic respiratory failure. *acute on chronic hypoxic respiratory failure -O2 sats on room air are 82% -chest x ray shows nothing acute *COPD -prn nebs *IDDM -resumed home meds *Leukocytosis -received a dose of IV steroids *Hyperkalemia -recheck now -hold Cozaar *headache -Excedrin started *plan: he needs Oxygen and being homeless makes this difficult; reviewed this w CM and they are looking into options. He has Medicare. He will require another midnight stay due to his hypoxia secondary from his COPD. Subjective: yAo said he is short of breath but this is chronic. Objective: Vital Signs Temp Pulse Resp BP Pulse Ox 36.6 C 97 16 138/83 H 91 L 08/31/18 07:41 08/31/18 07:41 08/31/18 07:41 08/31/18 07:41 08/31/18 07:41 Laboratory Results 08/31/18 04:25 08/31/18 04:25 08/30/18 08/31/18 09/01/18 05:59 05:59 05:59 Intake Total 1550 Balance 1550 - Physical Exam Constitutional: no apparent distress, chronically ill appearing Eyes: PERRL Ears, Nose, Mouth, Throat: hearing normal Cardiovascular: regular rate and rhythym Respiratory: no respiratory distress (poor air exchange throughout both lungs, very decreased at the bases), reduced air movement Gastrointestinal: normoactive bowel sounds Skin: warm Musculoskeletal: full muscle strength Neurologic: AAOx3 Psychiatric: interacting appropriately ICD10 Worksheet Patient Problems: Problems Problem Status Onset Failure to thrive in adult Acute Hypoglycemia due to insulin Acute Hypoxemia Acute Diabetes mellitus Acute Pulmonary mass Acute Dehydration Acute COPD (chronic obstructive pulmonary disease) Acute
[2018-08-31] MEDS: INSULIN LISPRO 100 UNIT/ML SC SCH ×3 (08:34→17:32)
[2018-08-31] MEDS ORDERED: ACETAMINOPHEN/ASA/CAFFEINE 1 EACH TAB PO PRN (08:47)
--- NOTE | 2018-08-31 09:44 | ASMTLACE ---
NIALL Comorbidities - select Answers: Cerebrovascular disease all that apply (CVA, TIA, aneurysms, vasc ular dementia) Chronic pulmonary disease Diabetes (uncontrolled or controlled) Opioid dependence / Chronic pain Other Notes: HTN # of Emergency department Answers: 3-4 visits in the last 6 months Social determinants Answers: History of substance abuse (ETOH, street drugs, prescription drugs, etc.) Homelessness (street, [facility]p) Score: 18 Date Signed: 08/31/2018 09:43 AM Electronically Signed By:Aure Fang
[2018-08-31] MEDS ORDERED: ALBUTEROL 60 PUFFS/8 GM MDI IH PRN (10:33)
[2018-08-31] MEDS: TIOTROPIUM INHALER 18 MCG/DOSE 5 DOSE/MDI IH SCH (11:39)
[2018-08-31] MEDS: FLUTICASONE/SALMETER 250/50MCG DISKUS IH SCH ×2 (11:40→21:05)
[2018-08-31] MEDS: ASPIRIN 81 MG CHEWABLE TAB PO SCH (12:10)
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
[2018-08-31] MEDS: GABAPENTIN 300 MG CAP PO SCH ×2 (17:31→21:28)
[2018-08-31] MEDS: CARVEDILOL 3.125 MG TAB PO SCH (17:32)
[2018-08-31] MEDS: metFORMIN HCL 500 MG TAB PO SCH (17:32)
[2018-08-31] MEDS ORDERED: CARVEDILOL 3.125 MG TAB PO SCH (18:00)
[2018-08-31] MEDS: TAMSULOSIN HCL 0.4 MG CAP PO SCH (21:28)
[2018-08-31] MEDS: INSULIN GLARGINE 100 UNITS/ML UNIT SC SCH (21:28)
[2018-08-31] MEDS: FLUTICASONE NASAL 120 SPRAYS/16 GM MDI EACHNARE SCH (21:32)
[2018-09-01] MEDS: IPRATROPIUM/ALBUTEROL 3 ML DEYVIAL IH SCH ×4 (05:47→22:29)
[2018-09-01] MEDS: LEVOTHYROXINE 50 MCG TAB PO SCH (06:17)
[2018-09-01] MEDS: GABAPENTIN 300 MG CAP PO SCH ×3 (08:21→21:55)
[2018-09-01] MEDS: metFORMIN HCL 500 MG TAB PO SCH ×2 (08:21→17:23)
[2018-09-01] MEDS: ROSUVASTATIN CALCIUM 40 MG TAB PO SCH (08:21)
[2018-09-01] MEDS: INSULIN GLARGINE 100 UNITS/ML UNIT SC SCH ×2 (08:21→22:01)
[2018-09-01] MEDS: OMEGA-3 FATTY ACIDS 1,000 MG CAP PO SCH (08:21)
[2018-09-01] MEDS: CARVEDILOL 3.125 MG TAB PO SCH ×2 (08:21→17:23)
[2018-09-01] MEDS: PANTOPRAZOLE SODIUM 40 MG TAB PO SCH (08:21)
[2018-09-01] MEDS: amLODIPine BESYLATE 5 MG TAB PO SCH (08:21)
[2018-09-01] MEDS: ASPIRIN 81 MG CHEWABLE TAB PO SCH (08:21)
[2018-09-01] MEDS: INSULIN LISPRO 100 UNIT/ML SC SCH ×3 (08:30→17:23)
[2018-09-01] MEDS: FLUTICASONE NASAL 120 SPRAYS/16 GM MDI EACHNARE SCH ×2 (08:36→21:57)
[2018-09-01] MEDS: FLUTICASONE/SALMETER 250/50MCG DISKUS IH SCH ×2 (08:56→22:30)
[2018-09-01] MEDS: TIOTROPIUM INHALER 18 MCG/DOSE 5 DOSE/MDI IH SCH (08:56)
--- NOTE | 2018-09-01 09:07 | PDMN ---
Medical Necessity Medical necessity: Change to IP, as of 08/31/18, per TRANSFUSION NURSE & MCG M-100; los >2 mn for ongoing management of acute on chronic respiratory failure (O2 82% on RA) secondary to COPD w/leukocytosis & hyperkalemia; pt is homeless & requiring supplemental oxygen, respiratory treatments & follow-up labs for>24 hrs that are performable only in acute IP setting; comorbid homelessness without access to oxygen, diabetes, COPD, CVA
[2018-09-01] MEDS: CALCIUM CARBONATE 500 MG CHEWABLE TAB PO PRN ×2 (10:52→20:33)
--- NOTE | 2018-09-01 11:00 | ASMTCMCOM ---
CM Note CM Note Notes: Received email from [facility] Pt's car is okay while he is in the hospital but will need to be moved after he is discharged. [facility] can receive oxygen for pt but will need to know when it is being delivered. Informed pt. Also informed Respiratory Therapy to arrange oxygen delivery for after 5pm to ensure someone will be there to accept it. Pt may be ready for discharge over next day or two. Date Signed: 09/01/2018 10:59 AM Electronically Signed By:DAYSI Salinas
[2018-09-01] MEDS ORDERED: BISACODYL 10 MG SUPP PR PRN (11:02)
[2018-09-01] MEDS ORDERED: MAGNESIUM HYDROXIDE 30 ML UDCUP PO PRN (11:02)
[2018-09-01] MEDS ORDERED: LACTULOSE 20 GM/30 ML UDCUP PO PRN (11:02)
--- NOTE | 2018-09-01 11:05 | PDHOMEO2F ---
Home Oxygen Face to Face Home Orders: I certify that a physician or a nurse practitioner or physician's assistant program manager has had a [id number] encounter with this patient on the date of this order due to the diagnosis listed, which relates to the primary reason the patient requires home oxygen. Alternative treatments have been tried, or considered, and deemed ineffective. It is anticipated that supplemental oxygen will result in improvement with treatment. Home oxygen qualifying diagnosis: COPD SpO2 on room air (%): 82% Frequency of home oxygen needed: continuous Home oxygen liters per minute: 2 Home oxygen delivery device: nasal cannula Concentrator: Yes E-tanks for mobility and back up: Yes If ordering portable O2, is the patient mobile in the home?: Yes I certify that, based on these findings, the home oxygen is medically necessary for this patient for the following length of time. Length of time home oxygen needed: 99 years Home Oxygen Comment: please use conserving device
[2018-09-01] MEDS: SENNOSIDES/DOCUSATE SODIUM TAB PO SCH ×2 (11:53→21:55)
[2018-09-01] MEDS: POLYETHYLENE GLYCOL 3350 17 GM PKT PO SCH (11:53)
--- NOTE | 2018-09-01 14:09 | HOSPPROG ---
Hospitalist Progress Note Assessment/Plan: Patient is a 67 y/o man w hx of COPD and chronic hypoxic respiratory failure. Unable to obtain O2 due to being homeless. He presented to the ER with SOB and acute hypoxemic respiratory failure. *acute on chronic hypoxic respiratory failure -O2 sats on room air are 82% -chest x ray shows nothing acute -spoke w CM and arranging to get O2 sent to the long-term *COPD -prn nebs -lungs sound worse today, not moving air as well -he is concerned about oral prednisone (says he has had reactions to it but wasn 't clear; trial of iv steroids (he had this in the ER) *IDDM -resumed home meds -change to ADA diet -A1C is elevated *Leukocytosis -received a dose of IV steroids *Hyperkalemia -recheck now -resolved *headache -Excedrin started -no complaints *constipation -add bowel protocol *plan:trial of iv steroids, home O2 ordered to help facilitate him leaving tomorrow if improved. Subjective: Ayo is feeling a bit worse today, more short of breath, some c/o constipation. Objective: Vital Signs Temp Pulse Resp BP Pulse Ox 36.2 C 74 16 131/83 H 92 09/01/18 11:41 09/01/18 11:41 09/01/18 11:41 09/01/18 11:41 09/01/18 11:41 Laboratory Results 09/01/18 04:30 08/31/18 09/01/18 09/02/18 05:59 05:59 05:59 Intake Total 786 Balance 786 - Physical Exam Constitutional: uncomfortable Eyes: PERRL Ears, Nose, Mouth, Throat: hearing normal Cardiovascular: regular rate and rhythym Respiratory: expiratory wheeze (long expiratory phase) Gastrointestinal: distension (slight) Skin: warm Musculoskeletal: full muscle strength Neurologic: AAOx3 ICD10 Worksheet Patient Problems: Problems Problem Status Onset COPD (chronic obstructive pulmonary disease) Acute Chronic Disease Mgmt/Transitional Care Acute Dehydration Acute Diabetes mellitus Acute Failure to thrive in adult Acute Hypoglycemia due to insulin Acute Hypoxemia Acute Pulmonary mass Acute
[2018-09-01] MEDS: methylPREDNISolone SOD SUCC 40 MG/ML VIAL IVP SCH ×2 (14:57→21:55)
[2018-09-01] MEDS: TAMSULOSIN HCL 0.4 MG CAP PO SCH (21:55)
[2018-09-02] MEDS: IPRATROPIUM/ALBUTEROL 3 ML DEYVIAL IH SCH ×4 (05:51→21:53)
[2018-09-02] MEDS: methylPREDNISolone SOD SUCC 40 MG/ML VIAL IVP SCH ×2 (05:58→15:12)
[2018-09-02] MEDS: LEVOTHYROXINE 50 MCG TAB PO SCH (05:58)
[2018-09-02] MEDS: FLUTICASONE/SALMETER 250/50MCG DISKUS IH SCH ×2 (09:29→20:58)
[2018-09-02] MEDS: TIOTROPIUM INHALER 18 MCG/DOSE 5 DOSE/MDI IH SCH (09:30)
[2018-09-02] MEDS: INSULIN LISPRO 100 UNIT/ML SC SCH ×3 (09:50→18:51)
[2018-09-02] MEDS: INSULIN GLARGINE 100 UNITS/ML UNIT SC SCH ×2 (09:51→20:57)
[2018-09-02] MEDS: GABAPENTIN 300 MG CAP PO SCH ×3 (09:56→21:00)
[2018-09-02] MEDS: SENNOSIDES/DOCUSATE SODIUM TAB PO SCH ×2 (09:56→20:56)
[2018-09-02] MEDS: amLODIPine BESYLATE 5 MG TAB PO SCH (09:56)
[2018-09-02] MEDS: metFORMIN HCL 500 MG TAB PO SCH ×2 (09:56→18:23)
[2018-09-02] MEDS: ROSUVASTATIN CALCIUM 40 MG TAB PO SCH (09:56)
[2018-09-02] MEDS: OMEGA-3 FATTY ACIDS 1,000 MG CAP PO SCH (09:56)
[2018-09-02] MEDS: PANTOPRAZOLE SODIUM 40 MG TAB PO SCH (09:57)
[2018-09-02] MEDS: CARVEDILOL 3.125 MG TAB PO SCH ×2 (09:57→18:23)
[2018-09-02] MEDS: POLYETHYLENE GLYCOL 3350 17 GM PKT PO SCH (09:57)
[2018-09-02] MEDS: ASPIRIN 81 MG CHEWABLE TAB PO SCH (09:57)
[2018-09-02] MEDS: FLUTICASONE NASAL 120 SPRAYS/16 GM MDI EACHNARE SCH ×2 (10:00→20:58)
--- NOTE | 2018-09-02 14:59 | HOSPPROG ---
Hospitalist Progress Note Assessment/Plan: Patient is a 67 y/o man w hx of COPD and chronic hypoxic respiratory failure. Unable to obtain O2 due to being homeless. He presented to the ER with SOB and acute hypoxemic respiratory failure. *acute on chronic hypoxic respiratory failure -O2 sats on room air are 82% -chest x ray shows nothing acute -spoke w CM and [facility] *COPD -prn nebs -much improved w IV steroids -will decrease to IV daily *IDDM -resumed home meds -change to ADA diet -A1C is elevated -sugars are high due to steroids *Leukocytosis -received a dose of IV steroids *Hyperkalemia -recheck now -resolved *headache -Excedrin started -no complaints *constipation -add bowel protocol *plan:hopefully, [facility] Subjective: Ayo is feeling better today, less short of breath. Objective: Vital Signs Temp Pulse Resp BP Pulse Ox 37.1 C 76 14 102/68 96 09/02/18 13:31 09/02/18 13:31 09/02/18 13:31 09/02/18 13:31 09/02/18 13:31 Laboratory Results 09/01/18 04:30 09/01/18 09/02/18 09/03/18 05:59 05:59 05:59 Intake Total 786 20 Balance 786 20 - Physical Exam Constitutional: no apparent distress, appears nourished, not in pain Eyes: PERRL Ears, Nose, Mouth, Throat: hearing normal Cardiovascular: regular rate and rhythym Respiratory: no respiratory distress, reduced air movement, No expiratory wheeze Skin: warm Musculoskeletal: full muscle strength Neurologic: AAOx3 Psychiatric: interacting appropriately, not anxious ICD10 Worksheet Patient Problems: Problems Problem Status Onset COPD (chronic obstructive pulmonary disease) Acute Chronic Disease Mgmt/Transitional Care Acute Dehydration Acute Diabetes mellitus Acute Failure to thrive in adult Acute Hypoglycemia due to insulin Acute Hypoxemia Acute Pulmonary mass Acute
[2018-09-02] MEDS: TAMSULOSIN HCL 0.4 MG CAP PO SCH (20:56)
[2018-09-03] MEDS: LEVOTHYROXINE 50 MCG TAB PO SCH (05:28)
[2018-09-03] MEDS: IPRATROPIUM/ALBUTEROL 3 ML DEYVIAL IH SCH ×4 (06:08→21:06)
[2018-09-03] MEDS: CARVEDILOL 3.125 MG TAB PO SCH ×2 (07:39→17:41)
[2018-09-03] MEDS: amLODIPine BESYLATE 5 MG TAB PO SCH (09:21)
[2018-09-03] MEDS: INSULIN GLARGINE 100 UNITS/ML UNIT SC SCH ×2 (09:21→21:27)
[2018-09-03] MEDS: metFORMIN HCL 500 MG TAB PO SCH ×2 (09:21→18:03)
[2018-09-03] MEDS: INSULIN LISPRO 100 UNIT/ML SC SCH ×3 (09:21→18:03)
[2018-09-03] MEDS: LOSARTAN POTASSIUM 50 MG TAB PO SCH (09:22)
[2018-09-03] MEDS: GABAPENTIN 300 MG CAP PO SCH ×3 (09:22→21:27)
[2018-09-03] MEDS: PANTOPRAZOLE SODIUM 40 MG TAB PO SCH (09:22)
[2018-09-03] MEDS: ASPIRIN 81 MG CHEWABLE TAB PO SCH (09:22)
[2018-09-03] MEDS: SENNOSIDES/DOCUSATE SODIUM TAB PO SCH ×2 (09:22→21:27)
[2018-09-03] MEDS: ROSUVASTATIN CALCIUM 40 MG TAB PO SCH (09:22)
[2018-09-03] MEDS: OMEGA-3 FATTY ACIDS 1,000 MG CAP PO SCH (09:22)
[2018-09-03] MEDS: FLUTICASONE NASAL 120 SPRAYS/16 GM MDI EACHNARE SCH ×2 (09:24→21:29)
[2018-09-03] MEDS: FLUTICASONE/SALMETER 250/50MCG DISKUS IH SCH ×2 (09:25→21:07)
[2018-09-03] MEDS: POLYETHYLENE GLYCOL 3350 17 GM PKT PO SCH (09:25)
[2018-09-03] MEDS: TIOTROPIUM INHALER 18 MCG/DOSE 5 DOSE/MDI IH SCH (09:28)
[2018-09-03] MEDS: methylPREDNISolone SOD SUCC 40 MG/ML VIAL IVP SCH (12:04)
--- NOTE | 2018-09-03 13:06 | ASMTCMCOM ---
CM Note CM Note Notes: CM spoke with floor RN, patient likely to discharge tomorrow, 09/04 to residential. CM shared importance of ensuring RT understands O2 needs to be delivered tomorrow after 5pm. CM emailed Dale @ the [email or web address]: [email or web address] with an update. CM to follow. Date Signed: 09/03/2018 01:05 PM Electronically Signed By:Lara Rees
--- NOTE | 2018-09-03 13:31 | HOSPPROG ---
Hospitalist Progress Note Assessment/Plan: Patient is a 67 y/o man w hx of COPD and chronic hypoxic respiratory failure. Unable to obtain O2 due to being homeless. He presented to the ER with SOB and acute hypoxemic respiratory failure. *acute on chronic hypoxic respiratory failure -O2 sats on room air are 82% -chest x ray shows nothing acute -spoke w CM and [facility] *COPD -prn nebs -much improved w IV steroids -will decrease to IV daily -now on one liter *IDDM -resumed home meds -change to ADA diet -A1C is elevated -sugars are high due to steroids *Leukocytosis -received a dose of IV steroids *Hyperkalemia -recheck now -resolved *headache -Excedrin started -no complaints *constipation -add bowel protocol *plan: see if he does ok on room air and [facility] Subjective: Ayo says he is feeling better. Objective: Vital Signs Temp Pulse Resp BP Pulse Ox 36.6 C 76 18 130/80 H 93 09/03/18 07:38 09/03/18 10:40 09/03/18 10:40 09/03/18 09:22 09/03/18 10:40 Laboratory Results 09/01/18 04:30 09/02/18 09/03/18 09/04/18 05:59 05:59 05:59 Intake Total 20 750 Balance 20 750 - Physical Exam Constitutional: no apparent distress, appears nourished, not in pain Eyes: PERRL Ears, Nose, Mouth, Throat: hearing normal Cardiovascular: regular rate and rhythym Respiratory: no respiratory distress, clear to auscultation, reduced air movement Skin: warm Musculoskeletal: full muscle strength Neurologic: AAOx3 Psychiatric: interacting appropriately ICD10 Worksheet Patient Problems: Problems Problem Status Onset COPD (chronic obstructive pulmonary disease) Acute Chronic Disease Mgmt/Transitional Care Acute Dehydration Acute Diabetes mellitus Acute Failure to thrive in adult Acute Hypoglycemia due to insulin Acute Hypoxemia Acute Pulmonary mass Acute
[2018-09-03] MEDS: TAMSULOSIN HCL 0.4 MG CAP PO SCH (21:27)
[2018-09-04] MEDS: LEVOTHYROXINE 50 MCG TAB PO SCH (05:12)
[2018-09-04] MEDS: IPRATROPIUM/ALBUTEROL 3 ML DEYVIAL IH SCH ×4 (06:30→21:23)
[2018-09-04] MEDS: CARVEDILOL 3.125 MG TAB PO SCH ×2 (07:48→17:46)
[2018-09-04] MEDS: INSULIN LISPRO 100 UNIT/ML SC SCH ×3 (10:11→17:46)
[2018-09-04] MEDS: TIOTROPIUM INHALER 18 MCG/DOSE 5 DOSE/MDI IH SCH (10:28)
[2018-09-04] MEDS: FLUTICASONE/SALMETER 250/50MCG DISKUS IH SCH ×2 (10:29→21:11)
[2018-09-04] MEDS: POLYETHYLENE GLYCOL 3350 17 GM PKT PO SCH (10:37)
[2018-09-04] MEDS: OMEGA-3 FATTY ACIDS 1,000 MG CAP PO SCH (10:38)
[2018-09-04] MEDS: methylPREDNISolone SOD SUCC 40 MG/ML VIAL IVP SCH (10:38)
[2018-09-04] MEDS: LOSARTAN POTASSIUM 50 MG TAB PO SCH (10:38)
[2018-09-04] MEDS: GABAPENTIN 300 MG CAP PO SCH ×3 (10:38→21:09)
[2018-09-04] MEDS: SENNOSIDES/DOCUSATE SODIUM TAB PO SCH ×2 (10:38→21:10)
[2018-09-04] MEDS: PANTOPRAZOLE SODIUM 40 MG TAB PO SCH (10:38)
[2018-09-04] MEDS: ASPIRIN 81 MG CHEWABLE TAB PO SCH (10:38)
[2018-09-04] MEDS: ROSUVASTATIN CALCIUM 40 MG TAB PO SCH (10:38)
[2018-09-04] MEDS: amLODIPine BESYLATE 5 MG TAB PO SCH (10:43)
[2018-09-04] MEDS: INSULIN GLARGINE 100 UNITS/ML UNIT SC SCH ×2 (10:43→21:12)
[2018-09-04] MEDS: FLUTICASONE NASAL 120 SPRAYS/16 GM MDI EACHNARE SCH ×2 (10:45→21:12)
[2018-09-04] MEDS: metFORMIN HCL 500 MG TAB PO SCH ×2 (10:50→17:46)
--- NOTE | 2018-09-04 11:46 | HOSPPROG ---
Hospitalist Progress Note Assessment/Plan: Patient is a 67 y/o man w hx of COPD and chronic hypoxic respiratory failure. Unable to obtain O2 due to being homeless. He presented to the ER with SOB and acute hypoxemic respiratory failure. *acute on chronic hypoxic respiratory failure -O2 sats on room air are 82% -chest x ray shows nothing acute -spoke w CM and arranging to get O2 sent to the senior care -much improved *COPD -prn nebs -much improved w IV steroids -will give him a short burst of oral steroids (doesn't sound like he has an allergic *IDDM -resumed home meds -change to ADA diet -A1C is elevated -sugars are high due to steroids *Leukocytosis -received a dose of IV steroids *Hyperkalemia -recheck now -resolved *headache -Excedrin started -no complaints *constipation -add bowel protocol *plan: dc to the senior care, O2 to be arranged for night use. His O2 sats during the day are in the upper 80's Subjective: Ayo has no complaints. Objective: Vital Signs Temp Pulse Resp BP Pulse Ox 36.6 C 75 16 138/81 H 94 09/04/18 07:46 09/04/18 07:48 09/04/18 07:46 09/04/18 10:43 09/04/18 07:46 Laboratory Results 09/01/18 04:30 09/03/18 09/04/18 09/05/18 05:59 05:59 05:59 Intake Total 750 1000 Balance 750 1000 - Physical Exam Constitutional: no apparent distress, appears nourished, not in pain Eyes: PERRL Ears, Nose, Mouth, Throat: hearing normal Respiratory: no respiratory distress, reduced air movement, expiratory wheeze ( few scattered) Gastrointestinal: normoactive bowel sounds Skin: warm Musculoskeletal: full muscle strength Neurologic: AAOx3 Psychiatric: interacting appropriately ICD10 Worksheet Patient Problems: Problems Problem Status Onset COPD (chronic obstructive pulmonary disease) Acute Chronic Disease Mgmt/Transitional Care Acute Dehydration Acute Diabetes mellitus Acute Failure to thrive in adult Acute Hypoglycemia due to insulin Acute Hypoxemia Acute Pulmonary mass Acute
[2018-09-04] MEDS: predniSONE 20 MG TAB PO SCH (13:07)
[2018-09-04] MEDS: TAMSULOSIN HCL 0.4 MG CAP PO SCH (21:10)
[2018-09-05] MEDS: LEVOTHYROXINE 50 MCG TAB PO SCH (05:14)
[2018-09-05] MEDS: IPRATROPIUM/ALBUTEROL 3 ML DEYVIAL IH SCH ×4 (05:59→21:02)
[2018-09-05] MEDS: SENNOSIDES/DOCUSATE SODIUM TAB PO SCH ×2 (09:37→21:58)
[2018-09-05] MEDS: POLYETHYLENE GLYCOL 3350 17 GM PKT PO SCH (09:37)
[2018-09-05] MEDS: GABAPENTIN 300 MG CAP PO SCH ×3 (09:37→21:58)
[2018-09-05] MEDS: LOSARTAN POTASSIUM 50 MG TAB PO SCH (09:37)
[2018-09-05] MEDS: OMEGA-3 FATTY ACIDS 1,000 MG CAP PO SCH (09:37)
[2018-09-05] MEDS: CARVEDILOL 3.125 MG TAB PO SCH ×2 (09:37→17:38)
[2018-09-05] MEDS: ROSUVASTATIN CALCIUM 40 MG TAB PO SCH (09:37)
[2018-09-05] MEDS: amLODIPine BESYLATE 5 MG TAB PO SCH (09:37)
[2018-09-05] MEDS: INSULIN GLARGINE 100 UNITS/ML UNIT SC SCH ×2 (09:38→21:57)
[2018-09-05] MEDS: predniSONE 20 MG TAB PO SCH (09:38)
[2018-09-05] MEDS: ASPIRIN 81 MG CHEWABLE TAB PO SCH (09:38)
[2018-09-05] MEDS: metFORMIN HCL 500 MG TAB PO SCH ×2 (09:38→17:38)
[2018-09-05] MEDS: PANTOPRAZOLE SODIUM 40 MG TAB PO SCH (09:38)
[2018-09-05] MEDS: INSULIN LISPRO 100 UNIT/ML SC SCH ×3 (09:38→17:37)
[2018-09-05] MEDS: FLUTICASONE NASAL 120 SPRAYS/16 GM MDI EACHNARE SCH ×2 (09:49→21:58)
[2018-09-05] MEDS: FLUTICASONE/SALMETER 250/50MCG DISKUS IH SCH ×2 (10:02→21:02)
[2018-09-05] MEDS: TIOTROPIUM INHALER 18 MCG/DOSE 5 DOSE/MDI IH SCH (10:02)
--- NOTE | 2018-09-05 11:26 | ASMTCMCOM ---
CM Note CM Note Notes: Morenita with RT attempted to get patient O2 yesterday for discharge. Patient has a Qualified Medicare Beneficiary Medicaid plan that covers very little. The respiratory companies stated patient had to pay for his own O2 and patient does not want to. He thinks his Medicare/Medicaid policies should cover it. Patient does have COPD and though this may have been an acute exacerbation, it is a longterm condition.CM contacted [facility] for LTM application. ULTC 100 has been completed and submitted. Patient needs O2 to mantain his health and not return to the hospital.We hope to get patient qualified for regular Medicaid so he can also be considered for placement. Patient has been referred to [facility] for support in the community. Kyra ([facility])is assisting with the Medicaid issues currently. JOSE will follow. Date Signed: 09/05/2018 11:26 AM Electronically Signed By:Stacey Clements LCSW
--- NOTE | 2018-09-05 15:50 | HOSPPROG ---
Hospitalist Progress Note Assessment/Plan: Patient is a 67 y/o man w hx of COPD and chronic hypoxic respiratory failure. Unable to obtain O2 due to being homeless. He presented to the ER with SOB and acute hypoxemic respiratory failure. *acute on chronic hypoxic respiratory failure -O2 sats on room air are 82% -chest x ray shows nothing acute -spoke w CM and arranging to get O2 sent to the [facility]pc -much improved *COPD -prn nebs -much improved w IV steroids -will give him a short burst of oral steroids *IDDM -resumed home meds -change to ADA diet -A1C is elevated -sugars are high due to steroids -increased Lantus *Leukocytosis -received a dose of IV steroids *Hyperkalemia -resolved *headache -Excedrin started -no complaints *constipation -add bowel protocol *plan: dc to the [facility] soon, O2 being arranged. Subjective: Ayo has no complaints; onoging shortness of breath. Objective: Vital Signs Temp Pulse Resp BP Pulse Ox 36.4 C 71 12 148/78 H 96 09/05/18 15:18 09/05/18 15:18 09/05/18 15:18 09/05/18 15:18 09/05/18 15:18 Laboratory Results 09/01/18 04:30 09/04/18 09/05/18 09/06/18 05:59 05:59 05:59 Intake Total 1000 Balance 1000 - Physical Exam Constitutional: appears nourished Eyes: PERRL Ears, Nose, Mouth, Throat: hearing normal Cardiovascular: regular rate and rhythym Respiratory: no respiratory distress, reduced air movement Gastrointestinal: normoactive bowel sounds Skin: warm Musculoskeletal: full muscle strength Neurologic: AAOx3 Psychiatric: interacting appropriately ICD10 Worksheet Patient Problems: Problems Problem Status Onset COPD (chronic obstructive pulmonary disease) Acute Chronic Disease Mgmt/Transitional Care Acute Dehydration Acute Diabetes mellitus Acute Failure to thrive in adult Acute Hypoglycemia due to insulin Acute Hypoxemia Acute Pulmonary mass Acute
--- NOTE | 2018-09-05 16:39 | ASMTCMCOM ---
CM Note CM Note Notes: Morenita with respiratory was able to get patient oxygen through [facility] and patient's tanks have been delivered. A residential bed has been reserved for patient for tomorrow 09/06/18. Patient's concentrator will need to be delivered to the residential after 5:00 when the staff can be involved in the process. Patient was informed we will give him a taxi voucher to help him get his tanks to the residential. Patient to discharge tomorrow. CM will follow. Date Signed: 09/05/2018 04:38 PM Electronically Signed By:Stacey Clements LCSW
[2018-09-05] MEDS: TAMSULOSIN HCL 0.4 MG CAP PO SCH (21:58)
[2018-09-06] MEDS: LEVOTHYROXINE 50 MCG TAB PO SCH (05:47)
[2018-09-06] MEDS: IPRATROPIUM/ALBUTEROL 3 ML DEYVIAL IH SCH ×3 (05:49→16:07)
[2018-09-06] MEDS: POLYETHYLENE GLYCOL 3350 17 GM PKT PO SCH (08:33)
[2018-09-06] MEDS: predniSONE 20 MG TAB PO SCH (08:33)
[2018-09-06] MEDS: SENNOSIDES/DOCUSATE SODIUM TAB PO SCH (08:33)
[2018-09-06] MEDS: metFORMIN HCL 500 MG TAB PO SCH (08:34)
[2018-09-06] MEDS: amLODIPine BESYLATE 5 MG TAB PO SCH (08:34)
[2018-09-06] MEDS: ROSUVASTATIN CALCIUM 40 MG TAB PO SCH (08:34)
[2018-09-06] MEDS: LOSARTAN POTASSIUM 50 MG TAB PO SCH (08:34)
[2018-09-06] MEDS: OMEGA-3 FATTY ACIDS 1,000 MG CAP PO SCH (08:34)
[2018-09-06] MEDS: GABAPENTIN 300 MG CAP PO SCH (08:35)
[2018-09-06] MEDS: ASPIRIN 81 MG CHEWABLE TAB PO SCH (08:35)
[2018-09-06] MEDS: CARVEDILOL 3.125 MG TAB PO SCH (08:35)
[2018-09-06] MEDS: PANTOPRAZOLE SODIUM 40 MG TAB PO SCH (08:35)
[2018-09-06] MEDS: INSULIN GLARGINE 100 UNITS/ML UNIT SC SCH (08:35)
[2018-09-06] MEDS: INSULIN LISPRO 100 UNIT/ML SC SCH ×2 (08:44→12:25)
[2018-09-06] MEDS: FLUTICASONE NASAL 120 SPRAYS/16 GM MDI EACHNARE SCH (08:46)
[2018-09-06] MEDS: FLUTICASONE/SALMETER 250/50MCG DISKUS IH SCH (10:19)
[2018-09-06] MEDS: TIOTROPIUM INHALER 18 MCG/DOSE 5 DOSE/MDI IH SCH (10:19)
--- NOTE | 2018-09-06 11:28 | HOSPPROG ---
Hospitalist Progress Note Assessment/Plan: Patient is a 67 y/o man w hx of COPD and chronic hypoxic respiratory failure. Unable to obtain O2 due to being homeless. He presented to the ER with SOB and acute hypoxemic respiratory failure. *acute on chronic hypoxic respiratory failure -O2 sats on room air are 82% -chest x ray shows nothing acute -respiratory therapy & has arranged O2 deliver *COPD -prn nebs -much improved w IV steroids -will give him a short burst of oral steroids *IDDM -resumed home meds -change to ADA diet -A1C is elevated -sugars are high due to steroids (dc steroids today) -increased Lantus *Leukocytosis -received a dose of IV steroids *Hyperkalemia -resolved *headache -Excedrin started -no complaints *constipation -add bowel protocol *plan: dc today Subjective: Ayo is chronically short of breath. Has no other complaints. Objective: Vital Signs Temp Pulse Resp BP Pulse Ox 36.7 C 71 18 141/84 H 95 09/06/18 08:13 09/06/18 08:13 09/06/18 08:13 09/06/18 08:35 09/06/18 08:13 Laboratory Results 09/01/18 04:30 - Physical Exam Constitutional: no apparent distress, appears nourished, not in pain Eyes: PERRL Ears, Nose, Mouth, Throat: hearing normal Cardiovascular: regular rate and rhythym Respiratory: no respiratory distress, reduced air movement (bibasilar) Gastrointestinal: normoactive bowel sounds Skin: warm Musculoskeletal: full muscle strength Neurologic: AAOx3 Psychiatric: interacting appropriately ICD10 Worksheet Patient Problems: Problems Problem Status Onset COPD (chronic obstructive pulmonary disease) Acute Chronic Disease Mgmt/Transitional Care Acute Dehydration Acute Diabetes mellitus Acute Failure to thrive in adult Acute Hypoglycemia due to insulin Acute Hypoxemia Acute Pulmonary mass Acute
--- NOTE | 2018-09-06 12:29 | ASMTCMCOM ---
CM Note CM Note Notes: Pts case discussed w/ Lux RN and Kalpana Leung NP. Pt is being discharged today. PT worked w/ pt and cleared him without any needs. CM made pt a reservation at the [facility] (emailed and left a msg w/ Dale). CM provided pt w/ clothes from the case management donation closet. Kyra from [facility] met w/ pt today and will work w/ him on an outpatient basis. CM provided pt w/ a taxi voucher since pt has 2 oxygen tanks with him. No other needs at this time. CM available for changes. Plan: Independent Date Signed: 09/06/2018 12:27 PM Electronically Signed By:MONIQUE Bryson
--- NOTE | 2018-09-06 13:34 | GDS ---
DISCHARGE DIAGNOSES: 1. Acute on chronic hypoxemic respiratory failure. 2. Chronic obstructive pulmonary disease. 3. Insulin-dependent diabetes. 4. Leukocytosis. 5. Hyperkalemia. 6. Headache. 7. Constipation. HISTORY OF PRESENT ILLNESS: Briefly, the patient is a 67-year-old man who is homeless. He has a history of COPD and chronic hypoxemic respiratory failure. He is unable to obtain oxygen. He presented to the ER for shortness of breath and had some difficulty breathing. He has been on oxygen throughout his stay and also has treated with steroids. He is markedly better. He will be discharged back to the alf today. Oxygen has been arranged for him. 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 HOSPITAL COURSE: 1. Acute on chronic hypoxemic respiratory failure. His oxygen levels are 82% on room air. His chest x-ray showed nothing acute. I suspect this is chronic obstructive pulmonary disease that is getting worse. 2. Chronic obstructive pulmonary disease. He was treated with a short burst of oral steroids with much improvement. 3. Insulin-dependent diabetes. He was placed on an ADA diet. His Lantus was increased because of high glucoses. 4. Leukocytosis, secondary from steroids. 5. Hyperkalemia, resolved. 6. Headache. No further complaints. 7. Constipation, resolved. DISCHARGE CONDITION: Stable. Blood pressure is 141/84, heart rate is 71, respiratory rate of 18, O2 sats on 2 L are 95%, temperature is 36.7 Celsius. DISCHARGE MEDICATIONS: Please see the EMR. DISCHARGE INSTRUCTIONS: 1. To follow up with [facility] to make an appointment this week. 2. To wear oxygen around the clock and no smoking around this. 3. His A1c is elevated. To follow up with [facility]. He needs a bit tighter control of his glucose. /[id number]/MODL MTDD
[2018-09-06 15:15] VITALS: BP 139/69
== END 2018-09-06 16:27 | disposition home or self-care (01) | DRG 189 ==
LOC: EDUNIT# → F3E 21:53 → OBSVTOIN 08-31 15:39
PROVIDERS: ADMIT Internal Medicine; ATTEND Internal Medicine
DX: J96.21 Acute and chronic respiratory failure with hypoxia (principal); J44.9 Chronic obstructive pulmonary disease, unspecified; E87.5 Hyperkalemia; R51 Headache; K59.00 Constipation, unspecified; E03.9 Hypothyroidism, unspecified; E11.9 Type 2 diabetes mellitus without complications; Z87.01 Personal history of pneumonia (recurrent); Z59.0 Homelessness; Z87.891 Personal history of nicotine dependence; Z86.73 Personal history of transient ischemic attack (TIA), and cerebral infarction without residual deficits; Z79.4 Long term (current) use of insulin
CPT/HCPCS: 96374; 97161-GP; G0378; G8978-GP-CI; G8979-GP-CI; G8980-GP-CI; J1815; J2920; J2930; J7512; J7613

== ENCOUNTER → 2018-11-06 | Outpatient (CLI) | payer OTHER, MEDICAID | LOC: FIMAGING 13:18 | PROVIDERS: ATTEND Internal Medicine Critical Care Medicine | DX: J18.9 Pneumonia, unspecified organism (principal); I70.0 Atherosclerosis of aorta; F17.200 Nicotine dependence, unspecified, uncomplicated ==

== ENCOUNTER → 2018-11-13 | Outpatient (CLI) | payer OTHER, MEDICAID | LOC: BHFA 14:00 | PROVIDERS: ATTEND Internal Medicine Cardiovascular Disease | DX: I25.10 Atherosclerotic heart disease of native coronary artery without angina pectoris (principal) | CPT/HCPCS: 78452; 93017; A9500; J2785 ==

== ENCOUNTER → 2018-11-24 | Outpatient (CLI) | payer OTHER, MEDICAID | LOC: BHFA 14:00 | PROVIDERS: ATTEND Internal Medicine Cardiovascular Disease | DX: I67.9 Cerebrovascular disease, unspecified (principal) ==

== ENCOUNTER → 2019-01-22 | Outpatient (CLI) | payer OTHER, MEDICAID | LOC: FLAB 16:27 → FIMAGING 16:27 → EDSTATUS 16:52 | PROVIDERS: ATTEND Internal Medicine | DX: R06.00 Dyspnea, unspecified (principal); J44.9 Chronic obstructive pulmonary disease, unspecified ==

== ENCOUNTER 2019-02-08 07:54 | Day surgery (SDC) | payer OTHER, MEDICAID | END 2019-02-08 11:00 | disposition home or self-care (01) | LOC: FSGY 07:54 ==

== ENCOUNTER 2019-03-14 10:09 | Day surgery (SDC) | payer OTHER, MEDICAID ==
[2019-03-14] MEDS ORDERED: LR 1,000 ML IV ONE (10:30)
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
[2019-03-14] MEDS ORDERED: ALBUTEROL 3 ML DEYVIAL IH ONE (12:00)
[2019-03-14] MEDS ORDERED: PROPOFOL 200 MG/20 ML VIAL ONE ×2 (12:08→13:05)
[2019-03-14] MEDS ORDERED: LIDOCAINE 2% 2 ML INJ ONE ×2 (12:25)
--- NOTE | 2019-03-14 12:30 | PDGENHP ---
History & Physical Chief Complaint: figueroa's colon screen History of Present Illness: gerd figueroa's polyps Pertinent Past, Social, Family History: no tobacccco. rare beer. father with lung cancer no colon cancer Relevant Physical Exam: A+Ox3. exp wheeze, no rales no rhonchi. S1S2. +BSA soft nt Cardiorespiratory Assessment: class III
[2019-03-14] MEDS ORDERED: fentaNYL 100 MCG/2 ML INJ IVP PRN (12:53)
[2019-03-14] MEDS ORDERED: ALBUTEROL 3 ML DEYVIAL IH PRN (12:53)
[2019-03-14] MEDS ORDERED: NALOXONE HCL 0.4 MG/ML INJ IVP PRN (12:53)
--- NOTE | 2019-03-14 13:30 | GIREPORT ---
[facility] - Endoscopy Department Patient Name: Ayo Tavera Procedure Date: 03/14/2019 12:07 PM Patient Type: Outpatient Attending MD/ ER Physician: Brijesh Lopez MD Procedure: Colonoscopy Indications: High risk colon cancer surveillance: Personal history of colonic polyps Providers: Brijesh Lopez MD Referring MD: Bryant Tena MD Medicines: Propofol per Anesthesia = IV general with spont resps Complications: No immediate complications. Estimated blood loss: Minimal. Description of Procedure: After obtaining informed consent, the scope was passed under direct vis ion. Throughout the procedure, the patient's blood pressure, pulse, and oxyg en saturations were monitored continuously. The Colonoscope with irrigatio n channel was introduced through the anus and advanced to the terminal il eum, with identification of the appendiceal orifice and IC valve. The colono scopy was performed without difficulty. The patient tolerated the procedure w ell. The quality of the bowel preparation was good. Findings: The digital rectal exam was normal. The terminal ileum appeared normal. A single localized angioectasia without bleeding was found in the cecum . A 4 mm polyp was found in the ascending colon. The polyp was sessile. T he polyp was removed with a piecemeal technique using a cold biopsy forcep s. Resection and retrieval were complete. Estimated blood loss was minimal . A 5 mm polyp was found in the transverse colon. The polyp was semi-sess ile. The polyp was removed with a cold snare. Resection and retrieval were complete. Estimated blood loss was minimal. Three sessile polyps were found in the transverse colon. The polyps wer e 2 to 3 mm in size. These polyps were removed with a piecemeal technique u sing a cold biopsy forceps. Resection and retrieval were complete. Estimated blood loss was minimal. Two semi-pedunculated polyps were found in the sigmoid colon. The polyp s were 12 to 15 mm in size. These polyps were removed with a hot snare. Resection and retrieval were complete. Estimated blood loss: none. Two sessile polyps were found in the sigmoid colon. The polyps were 2 t o 3 mm in size. These polyps were removed with a cold biopsy forceps. Resec tion and retrieval were complete. Estimated blood loss was minimal. A few medium-mouthed diverticula were found in the sigmoid colon and descending colon. The exam was otherwise without abnormality. Estimated Blood Loss: Estimated blood loss was minimal. Post Op Diagnosis: - The examined portion of the ileum was normal. - A single non-bleeding colonic angioectasia. - One 4 mm polyp in the ascending colon, removed piecemeal using a cold biopsy forceps. Resected and retrieved. - One 5 mm polyp in the transverse colon, removed with a cold snare. Resected and retrieved. - Three 2 to 3 mm polyps in the transverse colon, removed piecemeal usi ng a cold biopsy forceps. Resected and retrieved. - Two 12 to 15 mm polyps in the sigmoid colon, removed with a hot snare . Resected and retrieved. - Two 2 to 3 mm polyps in the sigmoid colon, removed with a cold biopsy forceps. Resected and retrieved. - Diverticulosis in the sigmoid colon and in the descending colon. - The examination was otherwise normal. Recommendation: - Await pathology results. - My office will call with the pathology result with 5-7 days. If you h ave not heard from my office by 14, do not assume the pathology is chery l, please call [phone] to get the pathology results. - Repeat colonoscopy in 3 years for surveillance. - Avoid Aspirin and NSAIDs for 7-10 days except as used for cardiac or stroke prevention. - High fiber diet indefinitely. - 30-35 grams of dietary fiber per day. Can use supplemental fiber. - A high fiber diet may decrease risk of complications from diverticulo sis. There is no need to avoid seeds or nuts. - Patient has a contact number available for emergencies. The signs and symptoms of potential delayed complications were discussed with the pat ient. Return to normal activities tomorrow. Written discharge instructions we re provided to the patient. - Continue present medications. - Discharge patient to home (ambulatory). - Return to primary care physician as previously scheduled. - Thank you for allowing me to help in your patient's care. Do not hesi crawley to call with any questions. - See EGD for other recommendations Attending Participation: I personally performed the entire procedure. Jessica Solorzano M.D Brijesh Lopez MD 03/14/2019 1:29:56 PM This report has been signed electronicallyMatthew MD Jessica Number of Addenda: 0 Note Initiated On: 03/14/2019 12:07 PM Total Procedure Duration Time 0 hours 38 minutes 58 seconds [email or web address]
--- NOTE | 2019-03-14 13:30 | POSTANESTH ---
Post Anesthetic Evaluation Cardiovascular Status: Similar to Pre-Op Cond Respiratory Status: Similar to Pre-op Cond. Level of Consciousness/Mental Status: Can Participate in Eval Pain Control: Adequate, Prn Tx Ordered Nausea/Vomiting Control: Adequate, Prn Tx Ordered Complications Possibly Related to Anesthesia: None Noted
--- NOTE | 2019-03-14 13:34 | GIREPORT ---
[facility] Surgical [facility] - Endoscopy Department Patient Name: Ayo Tavera Procedure Date: 03/14/2019 11:58 AM Patient Type: Outpatient Attending MD/ ER Physician: Brijesh Lopez MD Procedure: Upper GI endoscopy Indications: Follow-up of Montiel's esophagus Providers: Brijesh Lopez MD Referring MD: Bryant Tena MD Medicines: Propofol per Anesthesia = IV general with spont resps Complications: No immediate complications. Estimated blood loss: Minimal. Description of Procedure: After obtaining informed consent, the endoscope was passed under direct vision. Throughout the procedure, the patient's blood pressure, pulse, and oxygen saturations were monitored continuously. The Endoscope was intro duced through the mouth, and advanced to the third part of duodenum. The uppe r GI endoscopy was accomplished without difficulty. The patient tolerated th e procedure well. Findings: There were esophageal mucosal changes consistent with short-segment Montiel's esophagus present in the lower third of the esophagus. The ma ximum longitudinal extent of these mucosal changes was 2 cm in length. Mucosa was biopsied with a cold forceps for histology in 4 quadrants at intervals of 0.5 cm in the lower third of the esophagus. One specimen bottle was sen t to pathology. Estimated blood loss was minimal. Multiple small plaques were found in the lower third of the esophagus. Biopsies were taken with a cold forceps for histology. A hiatal hernia was present. The examined duodenum was normal. The exam was otherwise without abnormality. Estimated Blood Loss: Estimated blood loss was minimal. Post Op Diagnosis: - Esophageal mucosal changes consistent with short-segment Montiel's esophagus. Biopsied. - Multiple plaques in the lower third of the esophagus. Biopsied. Query skip? - Hiatal hernia. - Normal examined duodenum. - The examination was otherwise normal. Recommendation: - Await pathology results. - My office will call with the pathology result with 5-7 days. If you h ave not heard from my office by 12-14, do not assume the pathology is chery l, please call [phone] to get the pathology results. - Follow an antireflux regimen. - Use a proton pump inhibitor PO daily indefinitely. - Repeat upper endoscopy in 3 years for surveillance. - Perform a colonoscopy today. - Return to GI clinic in 6 weeks. - Return to primary care physician as previously scheduled. - Thank you for allowing me to help in your patient's care. Do not hesi crawley to call with any questions. Attending Participation: I personally performed the entire procedure. Jessica Solorzano M.D Brijesh Lopez MD 03/14/2019 1:33:54 PM This report has been signed electronicallyMatthew MD Jessica Number of Addenda: 0 Note Initiated On: 03/14/2019 11:58 AM [email or web address]
[2019-03-14 14:40] VITALS: BP 112/68
== END 2019-03-14 15:00 ==
LOC: FSGY 10:09
PROVIDERS: ATTEND Internal Medicine Gastroenterology
DX: K22.70 Barrett's esophagus without dysplasia (principal); B37.81 Candidal esophagitis; K21.9 Gastro-esophageal reflux disease without esophagitis; K44.9 Diaphragmatic hernia without obstruction or gangrene; Z12.11 Encounter for screening for malignant neoplasm of colon; Z86.010 Personal history of colon polyps; D12.2 Benign neoplasm of ascending colon; D12.3 Benign neoplasm of transverse colon; D12.5 Benign neoplasm of sigmoid colon; I10 Essential (primary) hypertension; J44.9 Chronic obstructive pulmonary disease, unspecified; E78.5 Hyperlipidemia, unspecified; I69.351 Hemiplegia and hemiparesis following cerebral infarction affecting right dominant side; I69.328 Other speech and language deficits following cerebral infarction; I69.315 Cognitive social or emotional deficit following cerebral infarction; G62.9 Polyneuropathy, unspecified; E11.9 Type 2 diabetes mellitus without complications; Z79.4 Long term (current) use of insulin; E03.9 Hypothyroidism, unspecified; F32.9 Major depressive disorder, single episode, unspecified; F41.9 Anxiety disorder, unspecified
CPT/HCPCS: J2704; J7613

== ENCOUNTER 2019-05-18 04:33 | Emergency (ER) | payer OTHER, MEDICAID | END 2019-05-18 08:21 | disposition home or self-care (01) ==

== ENCOUNTER 2019-05-24 01:47 | Emergency (ER) | payer OTHER, MEDICAID | END 2019-05-24 06:59 | disposition home or self-care (01) ==